=== PATIENT | female | born 1955 ===

== ENCOUNTER 2018-03-14 15:13 | Emergency (ER) | payer MEDICAID ==
[2018-03-14 15:14] VITALS: BMI 31.6
[2018-03-14 15:29] VITALS: RESP 18
--- NOTE | 2018-03-14 15:42 | C.PDOC ---
History Of Present Illness 62 y/o female presents to the ED with complaints of right rib pain, worsening over the past 5 days. Patient states she fell onto her right side 5 days ago after tripping on the sidewalk. Since then she has noticed bony rib tenderness on the right. Denies any head trauma, LOC, SOB, coughing, or other injury. Time Seen by Provider: 03/14/18 15:32 Chief Complaint (Nursing): Rib Injury History Per: Patient History/Exam Limitations: no limitations Onset/Duration Of Symptoms: Days Current Symptoms Are (Timing): Still Present Past Medical History Reviewed: Historical Data, Nursing Documentation, Vital Signs Vital Signs: Last Vital Signs Temp 98 F 03/14/18 15:27 Pulse 75 03/14/18 15:27 Resp 18 03/14/18 15:27 BP 133/81 03/14/18 15:27 Pulse Ox 97 03/14/18 15:43 - Medical History PMH: HTN, Hyperthyroidism Other Surgeries: Tubal ligation Family History: States: Unknown Family Hx - Social History Hx Tobacco Use: No Hx Alcohol Use: No Hx Substance Use: No - Immunization History Hx Tetanus Toxoid Vaccination: No Hx Influenza Vaccination: No Hx Pneumococcal Vaccination: No Review Of Systems Except As Marked, All Systems Reviewed And Found Negative. Constitutional: Negative for: Fever Cardiovascular: Positive for: Other (Right rib pain) Respiratory: Negative for: Cough, Shortness of Breath Skin: Negative for: Rash, Lesions Neurological: Negative for: Weakness, Numbness, Incoordination, Confusion, Headache, Dizziness Physical Exam - Physical Exam Appears: Well, Non-toxic, No Acute Distress Skin: Normal Color, Warm, Dry Head: Atraumatic, Normacephalic Eye(s): bilateral: Normal Inspection, PERRL, EOMI Neck: Supple Chest: Symmetrical, Tenderness (right-sided bony rib tenderness) Cardiovascular: Rhythm Regular Respiratory: Normal Breath Sounds, No Rales, No Rhonchi, No Wheezing Back: Normal Inspection, No Vertebral Tenderness Extremity: Normal ROM (to B/L upper and lower extremities), No Tenderness, No Deformity, No Swelling Pulses: Left Dorsalis Pedis: Normal, Right Dorsalis Pedis: Normal Neurological/Psych: Oriented x3, Normal Speech, Normal Cranial Nerves, Normal Motor, Normal Sensation Gait: Steady (patient seen ambulating in the ED) ED Course And Treatment O2 Sat by Pulse Oximetry: 97 (RA) Pulse Ox Interpretation: Normal Progress Note: Ordered x-ray of right ribs/chest. Patient given PO Motrin for pain control. Reports pain is improved after motrin. Xray shows isolated healing R sided rib fracture. Vitals WNL. Offered pain medication but reports motrin is sufficient. Offered work note but reports that she feels comfortable working Disposition - Disposition Disposition: HOME/ ROUTINE Disposition Time: 16:13 Condition: GOOD Additional Instructions: Motrin for pain. Follow-up with PMD within 2 days. Return to ED if condition worsens. Prescriptions: Ibuprofen [Motrin] 400 mg PO Q6 PRN #20 tab PRN Reason: Pain, Moderate (4-7) Instructions: Rib Fractures in Adults Forms: [email or web address] (Canadian) - Clinical Impression Clinical Impression: Contusion of rib, Rib fracture - Scribe Statement The provider has reviewed the documentation as recorded by the Scribe (Zaida Smiley) Provider Attestation: All medical record entries made by the Scribe were at my direction and personally dictated by me. I have reviewed the chart and agree that the record accurately reflects my personal performance of the history, physical exam, medical decision making, and the department course for this patient. I have also personally directed, reviewed, and agree with the discharge instructions and disposition.
[2018-03-14 16:22] VITALS: BP 125/90; PULSE 70; TEMP 98.1; O2SAT 99
--- NOTE | 2018-03-15 09:26 | RAD ---
Date of service: 03/14/2018 PROCEDURE: Radiographs of the Chest and Right Ribs. HISTORY: rib pain after fall COMPARISON: Chest radiographs 09/01/2016. TECHNIQUE: Frontal radiograph of the chest and multiple oblique radiographs of the right ribs were obtained. FINDINGS: RIGHT RIBS: No fracture or focal lesion visualized. LUNGS: Clear. PLEURA: No pneumothorax or pleural fluid. CARDIOVASCULAR: Normal sized heart. No pulmonary vascular congestion. OTHER FINDINGS: None. IMPRESSION: Unremarkable radiographs of the chest and right ribs. No right rib fracture.
== END 2018-03-14 16:22 | disposition home or self-care (01) ==
LOC: C.ER 15:13
DX: S22.31XA Fracture of one rib, right side, initial encounter for closed fracture (principal); S20.211A Contusion of right front wall of thorax, initial encounter; W01.0XXA Fall on same level from slipping, tripping and stumbling without subsequent striking against object, initial encounter; Y92.480 Sidewalk as the place of occurrence of the external cause

== ENCOUNTER 2018-08-08 09:39 | Emergency (ER) | payer MEDICAID ==
[2018-08-08 09:39] VITALS: BMI 31.6
[2018-08-08] MEDS ORDERED: Sodium Chloride 0.9% 1,000 ML IV STA (10:46)
[2018-08-08] MEDS ORDERED: Sodium Chloride 0.9% 1,000 ML ONE (11:05)
[2018-08-08 11:06] LABS: BASO % 0.6 % (0.0-2.0); EOS # 0.1 K/uL (0.0-0.7); EOS % 2.6 % (0.0-4.0); LYMPH # 1.7 K/uL (1.0-4.3); LYMPH % 46.9 % (20.0-40.0); MEAN CELL VOLUME 87.1 fL (81.0-99.0); MEAN CORPUSCULAR HEMOGLOBIN 28.7 pg (27.0-31.0); MEAN PLATELET VOLUME 7.6 fL (7.2-11.7); MONO # 0.4 K/uL (0.0-0.8); MONO % 11.3 % (0.0-10.0); NEUT # 1.4 K/uL (1.8-7.0); NEUT % 38.6 % (50.0-75.0); RBC 4.53 Mil/uL (3.80-5.20); RED CELL DISTRIBUTION WIDTH 13.4 % (11.5-14.5); WHITE BLOOD COUNT 3.7 K/uL (4.8-10.8)
[2018-08-08 11:07] LABS: SQUAMOUS EPITHIAL < 1 /hpf (0-5); URINE BILIRUBIN NEGATIVE (NEGATIVE); URINE BLOOD NEGATIVE (NEGATIVE); URINE CLARITY Clear (Clear); URINE COLOR Straw (YELLOW); URINE GLUCOSE (UA) NORMAL (Normal); URINE LEUKOCYTE ESTERASE TRACE Leu/uL (Negative); URINE PROTEIN NEGATIVE (NEGATIVE); URINE UROBILINOGEN NORMAL mg/dL (0.2-1.0)
[2018-08-08 11:16] LABS: ALB/GLOB RATIO 1.5 (1.0-2.1); ALBUMIN 4.2 g/dL (3.5-5.0); ALT/SGPT 33 U/L (9-52); AST/SGOT 30 U/L (14-36); BLOOD UREA NITROGEN 13 mg/dL (7-17); CALCIUM 9.2 mg/dl (8.6-10.4); GFR NON-AFRICAN AMERICAN > 60; LIPASE 79 U/L (23-300)
--- NOTE | 2018-08-08 11:18 | C.PDOC ---
History Of Present Illness 63 years old female presents to ED for complaints of intermittent epigastric pain associated with nausea that began 5 days ago. Patient states she suspects she ate something bad. Denies vomiting, diarrhea or any other complaints. Time Seen by Provider: 08/08/18 10:06 Chief Complaint (Nursing): Abdominal Pain History Per: Patient History/Exam Limitations: no limitations Onset/Duration Of Symptoms: Hrs Current Symptoms Are (Timing): Still Present Location Of Pain/Discomfort: Epigastric Radiation Of Pain To:: None Associated Symptoms: Nausea. denies: Fever, Chills, Vomiting, Diarrhea Exacerbating Factors: None Alleviating Factors: None Last Bowel Movement: Today Recent travel outside of the [place]: No Abnormal Vaginal Bleeding: No Past Medical History Reviewed: Historical Data, Nursing Documentation, Vital Signs Vital Signs: Last Vital Signs Temp 98.1 F 08/08/18 09:48 Pulse 64 08/08/18 09:48 Resp 18 08/08/18 09:48 BP 161/102 H 08/08/18 09:48 Pulse Ox 95 08/08/18 09:48 - Medical History PMH: HTN, Hyperthyroidism Family History: States: Unknown Family Hx - Social History Hx Tobacco Use: No Hx Alcohol Use: No Hx Substance Use: No - Immunization History Hx Tetanus Toxoid Vaccination: No Hx Influenza Vaccination: No Hx Pneumococcal Vaccination: No Review Of Systems Constitutional: Negative for: Fever, Chills Gastrointestinal: Positive for: Nausea, Abdominal Pain (Epigastric ). Negative for: Vomiting, Diarrhea, Constipation Genitourinary: Negative for: Dysuria Skin: Negative for: Rash Neurological: Negative for: Weakness, Numbness Physical Exam - Physical Exam Appears: Non-toxic, No Acute Distress Skin: Normal Color, Warm, Dry, No Rash Head: Atraumatic, Normacephalic Eye(s): bilateral: Normal Inspection, PERRL, EOMI Oral Mucosa: Moist Neck: Normal ROM, Supple Chest: Symmetrical, No Tenderness Cardiovascular: Rhythm Regular, No Murmur Respiratory: Normal Breath Sounds, No Rales, No Rhonchi, No Wheezing Gastrointestinal/Abdominal: Soft, Tenderness (Mid Epigastric area ), No Guarding, No Rebound Extremity: Normal ROM Extremity: Bilateral: Atraumatic, Normal Color And Temperature, Normal ROM Pulses: Left Radial: Normal, Right Radial: Normal Neurological/Psych: Oriented x3, Normal Speech Gait: Steady ED Course And Treatment - Laboratory Results Result Diagrams: 08/08/18 11:01 08/08/18 11:01 O2 Sat by Pulse Oximetry: 95 (RA) Pulse Ox Interpretation: Normal - CT Scan/US Abdomen US Other Rad Studies (CT/US): Read By Radiologist, Radiology Report Reviewed CT/US Interpretation: Date of service: 08/08/2018. HISTORY: upper abd pain. COMPARISON: None. TECHNIQUE: Sonographic evaluation of the abdomen. FINDINGS: LIVER: Measures 11.5 cm. Evaluation liver is remarkable only for 1 or 2 subcentimeter hepatic granulomata at the right lobe liver. No suspicious parenchymal mass. No definite intrahepatic biliary dilatation appreciated. GALLBLADDER: Unremarkable. No gallstones. COMMON BILE DUCT: Measures 4.8 mm. No stones. No dilatation. PANCREAS: Unremarkable as visualized. No mass. No ductal dilatation. RIGHT KIDNEY: Measures 9.9cm. Normal echogenicity. No calculus, mass, or hydronephrosis. LEFT KIDNEY: Measures 10.7cm. Normal echogenicity. No calculus, mass, or hydronephrosis. SPLEEN: Normal in size and contour. No mass. AORTA: No aneurysmal dilatation. IVC: Unremarkable. OTHER FINDINGS: None. IMPRESSION: One or 2 right lobe hepatic granulomata are identified with the liver otherwise unremarkable. The remainder of the right upper quadrant ultrasound is otherwise unremarkable as well. Progress Note: Administered IV Fluids. Ordered blood work, Urinalysis, and Abdomen US. On re-evaluation patient feels better, tolerates po, no longer c/o abdominal pain. Patient is stable to be d/c home with PMD follow up. Disposition - Disposition Referrals: Ricky Zhou MD [Non-Staff] - Disposition: HOME/ ROUTINE Disposition Time: 16:01 Condition: STABLE Additional Instructions: Follow up with PMD within 1-2 days. Return to ED if feel worse. 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 - Scribe Statement The provider has reviewed the documentation as recorded by the Scribe Randee Mcdowell All medical record entries made by the Rickibe were at my direction and personally dictated by me. I have reviewed the chart and agree that the record accurately reflects my personal performance of the history, physical exam, medical decision making, and the department course for this patient. I have also personally directed, reviewed, and agree with the discharge instructions and d isposition.
--- NOTE | 2018-08-08 14:28 | US ---
Date of service: 08/08/2018 HISTORY: upper abd pain COMPARISON: None. TECHNIQUE: Sonographic evaluation of the abdomen. FINDINGS: LIVER: Measures 11.5 cm. Evaluation liver is remarkable only for 1 or 2 subcentimeter hepatic granulomata at the right lobe liver. No suspicious parenchymal mass. No definite intrahepatic biliary dilatation appreciated. GALLBLADDER: Unremarkable. No gallstones. COMMON BILE DUCT: Measures 4.8 mm. No stones. No dilatation. PANCREAS: Unremarkable as visualized. No mass. No ductal dilatation. RIGHT KIDNEY: Measures 9.9cm. Normal echogenicity. No calculus, mass, or hydronephrosis. LEFT KIDNEY: Measures 10.7cm. Normal echogenicity. No calculus, mass, or hydronephrosis. SPLEEN: Normal in size and contour. No mass. AORTA: No aneurysmal dilatation. IVC: Unremarkable. OTHER FINDINGS: None. IMPRESSION: One or 2 right lobe hepatic granulomata are identified with the liver otherwise unremarkable. The remainder of the right upper quadrant ultrasound is otherwise unremarkable as well.
[2018-08-08 15:37] VITALS: RESP 17
[2018-08-08 16:18] VITALS: BP 145/83; PULSE 56; TEMP 97.7
[2018-08-08 17:58] VITALS: O2SAT 95
== END 2018-08-08 16:25 | disposition home or self-care (01) ==
LOC: C.ER 09:39
DX: K29.70 Gastritis, unspecified, without bleeding (principal); I10 Essential (primary) hypertension; E05.90 Thyrotoxicosis, unspecified without thyrotoxic crisis or storm
CPT/HCPCS: 76700; 80053; 81001; 83690; 85025; 99285; J7030